=== PATIENT | male | born 1990 | race African-American/Black ===

== ENCOUNTER 2021-02-13 13:06 | Emergency (ER) | payer SELFPAY ==
[~2021-02-13] VITALS: Ht 165.1 cm; Wt 68.0 kg
[2021-02-13 13:30] VITALS: BP 128/86
== END 2021-02-13 13:56 | disposition left against medical advice (07) ==
LOC: ER 13:06
DX: S09.8XXA Other specified injuries of head, initial encounter (principal); S01.81XA Laceration without foreign body of other part of head, initial encounter; Y08.89XA Assault by other specified means, initial encounter; Y93.89 Activity, other specified; Y92.9 Unspecified place or not applicable
CPT/HCPCS: 99283